=== PATIENT | male | born 1950 | race Caucasian/White ===

== ENCOUNTER → 2021-12-14 13:21 | Outpatient (CLI) | payer MEDICARE, OTHER, SELFPAY ==
--- NOTE | 2021-12-14 | DI.MRI.S_ITS ---
PROCEDURE: MR ANKLE RT WO CON INDICATIONS: Pain in right ankle and joints of right foot TECHNIQUE: Noncontrast sagittal T1 spin echo and T2 fast spin echo with fat saturation, axial proton density fast spin echo and T2 fast spin echo with fat saturation, coronal T1 spin echo and T2 fast spin echo with fat saturation through the ankle/hindfoot. COMPARISON: None. FINDINGS: Image quality: Excellent. Bones and joints: There is mild edema involving lateral weight-bearing portion of distal tibial plafond suggestive of small osteochondral injury in this area. No other area of abnormal marrow signal. No osteochondral injury of talar dome. Mild midfoot and hindfoot joint osteoarthritic changes are seen with joint space narrowing and subchondral sclerosis. Well-defined dorsal calcaneal enthesophyte is seen. No hindfoot coalitions. Small tibiotalar and subtalar joint effusion is seen, no gross loose bodies. Benign-appearing intraosseous lipoma is noted in anterior weight-bearing portion of calcaneus. Medial structures: The posterior tibialis, flexor digitorum longus, and flexor hallucis longus tendons are mildly thickened with small amount of fluid distending tendon sheaths particularly involving posterior tibialis tendon at the level of talonavicular joint. The posterior tibial neurovascular bundle appears normal within the tarsal tunnel, without extrinsic mass effect. Thickened deltoid ligament and spring ligament complex is seen suggestive of low-grade sprain/partial-thickness tear. Lateral structures: The anterior talofibular, calcaneofibular, and posterior talofibular ligaments appear mildly thickened with intrasubstance T2 hyperintense signal. More superiorly, the anterior and posterior tibiofibular ligaments appear intact, as is the intermalleolar ligament. The tibiofibular syndesmosis is normal in width at 2 mm or less. The peroneus longus and brevis tendons demonstrate normal location and morphology. Adjacent bony peroneal tubercle and retrotrochlear prominence are normal in size. The sinus tarsi demonstrates normal fatty signal, without edema, fibrosis, or cyst formation. Visualized sinus tarsi components (cervical ligament, interosseous talocalcaneal ligament, roots of the inferior extensor retinaculum) appear normal. The calcaneonavicular and calcaneocuboid components of the bifurcate ligament appear intact. The dorsal calcaneocuboid ligament appears intact. Anterior structures: The tibialis anterior, extensor hallucis longus, and extensor digitorum longus tendons appear intact. The dorsal talonavicular ligament appears intact. Posterior and plantar structures: Mildly thickened mid to distal Achilles tendon with intrasubstance T2 hyperintense signal extending to its insertion on posterior calcaneus is seen. Medial and lateral bands of the plantar fascia are of normal thickness. No abductor digiti quinti muscle atrophy to suggest Roger neuropathy. IMPRESSION: 1. Mild midfoot and hindfoot joint osteoarthritis. No fracture or dislocation. Suggestion of small osteochondral injury involving lateral weight-bearing portion of distal tibial plafond. 2. Well-defined dorsal calcaneal enthesophyte with thickened distal Achilles tendon suggestive of tendinosis/low-grade partial-thickness tear. No full-thickness Achilles tendon rupture. 3. Low-grade tenosynovitis involving flexor tendons as above. Extensor and peroneus tendons are intact. 4. Low-grade medial and lateral ankle ligament sprain/intrasubstance partial-thickness tear. No full-thickness ligament rupture. Dictated by: Mario Roach M.D. on 12/14/2021 at 17:34 Approved by: Mario Roach M.D. on 12/14/2021 at 17:38
== END ==
PROVIDERS: Referring Provider Podiatrist; Visit Provider Podiatrist
DX: S93.401A Sprain of unspecified ligament of right ankle, initial encounter (principal); M76.61 Achilles tendinitis, right leg; M19.071 Primary osteoarthritis, right ankle and foot; M65.871 Other synovitis and tenosynovitis, right ankle and foot; M77.31 Calcaneal spur, right foot; M25.571 Pain in right ankle and joints of right foot
CPT/HCPCS: 73721